=== PATIENT | female | born 1965 | race Caucasian/White ===

== ENCOUNTER 2017-06-16 17:17 | Emergency (ER) | payer MEDICAID, OTHER ==
[2017-06-16 17:27] VITALS: RESP 18; TEMP 98.3; O2SAT 98
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
[2017-06-16 19:00] VITALS: BP 124/72; PULSE 72
--- NOTE | 2017-06-16 19:01 | RAD ---
PROCEDURE: Radiographs of the Lumbar Spine. HISTORY: pain COMPARISON: None available. FINDINGS: BONES: Alignment appears satisfactory. No listhesis. No acute displaced fracture identified. DISC SPACES: Unremarkable. OTHER FINDINGS: None. IMPRESSION: No acute displaced fracture or subluxation identified.
== END 2017-06-16 19:00 | disposition home or self-care (01) ==
LOC: C.ER 17:17
DX: S39.012A Strain of muscle, fascia and tendon of lower back, initial encounter (principal); S80.02XA Contusion of left knee, initial encounter; S80.01XA Contusion of right knee, initial encounter; V89.2XXA Person injured in unspecified motor-vehicle accident, traffic, initial encounter

== ENCOUNTER 2018-01-13 12:20 | Emergency (ER) | payer MEDICAID ==
[2018-01-13 12:25] VITALS: TEMP 97.6
[2018-01-13 13:03] LABS: HCG,QUALITATIVE URINE NEGATIVE (NEGATIVE)
[2018-01-13 13:05] LABS: SQUAMOUS EPITHIAL 2 /hpf (0-5); URINE BILIRUBIN NEGATIVE (NEGATIVE); URINE BLOOD NEGATIVE (NEGATIVE); URINE CLARITY Clear (Clear); URINE COLOR Yellow (YELLOW); URINE GLUCOSE (UA) NORMAL (Normal); URINE LEUKOCYTE ESTERASE NEG Leu/uL (Negative); URINE PROTEIN NEGATIVE (NEGATIVE); URINE UROBILINOGEN NORMAL mg/dL (0.2-1.0)
--- NOTE | 2018-01-13 13:44 | C.PDOC ---
History Of Present Illness 52 y/o female presents to the ED complaining of vaginal bleeding and abdominal pain, ongoing for 2-3 months. Patient has not seen a pets and pet supplies salesperson in the past year. States the bleeding is on and off, usually with 2 weeks of icer hand bleeding and 2 weeks of heavy bleeding. Today the abdominal pain worsened, prompting patient to come to the ED. Also complains of chills, nausea, and back pain. Denies any vomiting, diarrhea, incontinence, dysuria, or hematuria. Taking Motrin and Tylenol at home for the pain. Patient saw primary doctor for the pain and had an ultrasound of the abdomen scheduled, supposed to be done today, but the office is closed due to snow. PMD: Albert Time Seen by Provider: 01/13/18 12:42 Chief Complaint (Nursing): Female Genitourinary History Per: Patient History/Exam Limitations: no limitations Onset/Duration Of Symptoms: Waxing/Waning (for 2-3 months) Current Symptoms Are (Timing): Worse Quality Of Discomfort: "Pain" Past Medical History Reviewed: Historical Data, Nursing Documentation, Vital Signs Vital Signs: Last Vital Signs Temp 97.6 F 01/13/18 12:23 Pulse 97 H 01/13/18 16:34 Resp 16 01/13/18 16:34 BP 134/71 01/13/18 16:34 Pulse Ox 98 01/13/18 16:41 - Medical History PMH: No Chronic Diseases Other Surgeries: Abdominoplasty Family History: States: Unknown Family Hx - Social History Hx Tobacco Use: No Hx Alcohol Use: No Hx Substance Use: No - Immunization History Hx Tetanus Toxoid Vaccination: No Hx Influenza Vaccination: No Hx Pneumococcal Vaccination: No Review Of Systems Constitutional: Positive for: Chills. Negative for: Fever Gastrointestinal: Positive for: Nausea, Abdominal Pain. Negative for: Vomiting , Diarrhea Genitourinary: Positive for: Vaginal Bleeding. Negative for: Dysuria, Incontinence, Hematuria Musculoskeletal: Positive for: Back Pain Physical Exam - Physical Exam Appears: No Acute Distress Skin: No Rash Head: Atraumatic, Normacephalic Eye(s): bilateral: PERRL, EOMI Oral Mucosa: Moist Neck: Supple Chest: No Tenderness Cardiovascular: Rhythm Regular, No Murmur Respiratory: No Rales, No Rhonchi, No Wheezing, Other (Clear to auscultation bilaterally) Gastrointestinal/Abdominal: Soft, Tenderness (mild suprapubic and lower abdominal tenderness), No Guarding, No Rebound Back: No CVA Tenderness Extremity: No Calf Tenderness, No Swelling Neurological/Psych: Oriented x3, Normal Speech, No Other (gross deficits) ED Course And Treatment - Laboratory Results Result Diagrams: 01/13/18 14:04 01/13/18 14:04 O2 Sat by Pulse Oximetry: 98 (RA) Pulse Ox Interpretation: Normal - CT Scan/US Transvag/Pelvic US Other Rad Studies (CT/US): Read By Radiologist, Radiology Report Reviewed CT/US Interpretation: FINDINGS: UTERUS: Measures 11.0 x 4.8 x 5.6 cm. Anteverted, normal in size and appearance. There is a 1.5 x 0.8 x 1.1 cm intramural fibroid in the anterior wall of the midbody of the uterus to the left and 1.8 x 1.5 x 1.9 cm intramural fibroid in the fundus anteriorly and to the right. ENDOMETRIUM: Measures 6.4 mm in diameter. Unremarkable. CERVIX: No cervical abnormality identified. RIGHT OVARY: Measures 3.6 x 2.7 x 2.8 cm. No solid mass. Normal flow. There is a 2.9 x 2.9 x 2.8 cm simple cyst. LEFT OVARY: Measures 3.0 x 1.6 x 2.6 cm. No solid mass. Normal flow. FREE FLUID: No significant free fluid noted. OTHER FINDINGS: None. IMPRESSION: 1. Fibroid uterus, the larger intramural anterior fundal fibroid to the right measures 1.9 cm. 2. 2.9 cm simple cyst in the right ovary. Medical Decision Making Medical Decision Making: Time: 12:45 Initial Plan: * CMP * CBC * Urinalysis * HCG, qualitative * Urine culture * US Pelvis/Transvag Labs reviewed, and grossly normal. US findings d/w patient in detail. All questions answered. Patient is stable for discharge home. Advised to take Motrin or Tylenol for pain as needed. Patient instructed to follow up with pets and pet supplies salesperson without fail, and provided with copy of US results. Referral to the women's clinic was also provided. Disposition Counseled Patient/Family Regarding: Studies Performed, Diagnosis, Need For Followup - Disposition Referrals: Shaik Price MD [Staff Provider] - [facility] [Outside] Disposition: HOME/ ROUTINE Disposition Time: 16:32 Condition: GOOD Additional Instructions: Take Tylenol or Motrin for pain. Follow up with Dr Ruiz and pets and pet supplies salesperson of your choice or in women's clinic at [place]- call for appointments. Instructions: Ovarian Cyst (DC) Forms: [facility] ([place]ri[place]), General Discharge Instructions - POA Present On Arrival: None - Clinical Impression Clinical Impression: Fibroid uterus, Right ovarian cyst - PA / [place] / Resident Statement MD/DO has reviewed & agrees with the documentation as recorded. - Scribe Statement The provider has reviewed the documentation as recorded by the Scribe (Melina Hale) All medical record entries made by the Scribe were at my direction and personally dictated by me. I have reviewed the chart and agree that the record accurately reflects my personal performance of the history, physical exam, medical decision making, and the department course for this patient. I have also personally directed, reviewed, and agree with the discharge instructions and disposition.
[2018-01-13 14:07] LABS: BASO # 0.1 K/uL (0.0-0.2); BASO % 0.7 % (0.0-2.0); EOS % 0.3 % (0.0-4.0); LYMPH # 1.6 K/uL (1.0-4.3); LYMPH % 21.7 % (20.0-40.0); MEAN CELL VOLUME 86.6 fL (81.0-99.0); MEAN CORPUSCULAR HEMOGLOBIN 29.8 pg (27.0-31.0); MEAN CORPUSCULAR HGB CONC 34.5 g/dL (33.0-37.0); MEAN PLATELET VOLUME 8.7 fL (7.2-11.7); MONO # 0.5 K/uL (0.0-0.8); MONO % 6.4 % (0.0-10.0); NEUT # 5.3 K/uL (1.8-7.0); NEUT % 70.9 % (50.0-75.0); RBC 4.01 Mil/uL (3.80-5.20); RED CELL DISTRIBUTION WIDTH 14.6 % (11.5-14.5); WHITE BLOOD COUNT 7.5 K/uL (4.8-10.8)
[2018-01-13 14:31] LABS: ALB/GLOB RATIO 1.2 (1.0-2.1); ALBUMIN 3.7 g/dL (3.5-5.0); ALT/SGPT 17 U/L (9-52); AST/SGOT 14 U/L (14-36); BLOOD UREA NITROGEN 11 mg/dL (7-17); CALCIUM 8.7 mg/dl (8.6-10.4); GFR AFRICAN-AMERICAN > 60; GFR NON-AFRICAN AMERICAN > 60
--- NOTE | 2018-01-13 15:41 | US ---
HISTORY: Pelvic pain COMPARISON: None available. TECHNIQUE: Transabdominal and transvaginal pelvic ultrasound was performed. FINDINGS: UTERUS: Measures 11.0 x 4.8 x 5.6 cm. Anteverted, normal in size and appearance. There is a 1.5 x 0.8 x 1.1 cm intramural fibroid in the anterior wall of the midbody of the uterus to the left and 1.8 x 1.5 x 1.9 cm intramural fibroid in the fundus anteriorly and to the right. ENDOMETRIUM: Measures 6.4 mm in diameter. Unremarkable. CERVIX: No cervical abnormality identified. RIGHT OVARY: Measures 3.6 x 2.7 x 2.8 cm. No solid mass. Normal flow. There is a 2.9 x 2.9 x 2.8 cm simple cyst. LEFT OVARY: Measures 3.0 x 1.6 x 2.6 cm. No solid mass. Normal flow. FREE FLUID: No significant free fluid noted. OTHER FINDINGS: None. IMPRESSION: 1. Fibroid uterus, the larger intramural anterior fundal fibroid to the right measures 1.9 cm. 2. 2.9 cm simple cyst in the right ovary.
[2018-01-13 16:34] VITALS: BP 134/71; PULSE 97; RESP 16
[2018-01-13 16:35] VITALS: O2SAT 98
== END 2018-01-13 16:40 | disposition home or self-care (01) ==
LOC: C.ER 12:20
DX: D25.9 Leiomyoma of uterus, unspecified (principal); N83.201 Unspecified ovarian cyst, right side

== ENCOUNTER 2018-01-23 00:57 | Emergency (ER) | payer MEDICAID ==
[2018-01-23 01:46] LABS: BASO # 0.1 K/uL (0.0-0.2); BASO % 1.2 % (0.0-2.0); EOS % 0.5 % (0.0-4.0); HEMOGLOBIN 12.7 g/dL (11.0-16.0); LYMPH # 1.9 K/uL (1.0-4.3); LYMPH % 20.5 % (20.0-40.0); MEAN CELL VOLUME 87.3 fL (81.0-99.0); MEAN CORPUSCULAR HEMOGLOBIN 30.2 pg (27.0-31.0); MEAN CORPUSCULAR HGB CONC 34.5 g/dL (33.0-37.0); MEAN PLATELET VOLUME 8.5 fL (7.2-11.7); MONO # 0.6 K/uL (0.0-0.8); MONO % 6.5 % (0.0-10.0); NEUT # 6.6 K/uL (1.8-7.0); NEUT % 71.3 % (50.0-75.0); RBC 4.2 Mil/uL (3.80-5.20); RED CELL DISTRIBUTION WIDTH 13.6 % (11.5-14.5); WHITE BLOOD COUNT 9.2 K/uL (4.8-10.8)
[2018-01-23 02:01] LABS: SQUAMOUS EPITHIAL 5 /hpf (0-5); URINE BILIRUBIN NEGATIVE (NEGATIVE); URINE BLOOD NEGATIVE (NEGATIVE); URINE CLARITY Hazy (Clear); URINE COLOR Yellow (YELLOW); URINE GLUCOSE (UA) NORMAL (Normal); URINE LEUKOCYTE ESTERASE TRACE Leu/uL (Negative); URINE PROTEIN NEGATIVE (NEGATIVE); URINE UROBILINOGEN NORMAL mg/dL (0.2-1.0)
[2018-01-23] MEDS ORDERED: Sodium Chloride 0.9% 1,000 ML IV ONE (02:09)
[2018-01-23 02:18] LABS: ALB/GLOB RATIO 1.1 (1.0-2.1); ALBUMIN 3.8 g/dL (3.5-5.0); ALT/SGPT 8 U/L (9-52); AST/SGOT 16 U/L (14-36); BLOOD UREA NITROGEN 15 mg/dL (7-17); CALCIUM 8.6 mg/dl (8.6-10.4); GFR AFRICAN-AMERICAN > 60; GFR NON-AFRICAN AMERICAN > 60; LIPASE 214 U/L (23-300)
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
[2018-01-23 02:33] LABS: BARBITURATES, UR NEGATIVE (NEGATIVE); BENZODIAZEPINES, UR NEGATIVE (NEGATIVE); OPIATES, UR NEGATIVE (NEGATIVE); PHENCYCLIDINE, UR NEGATIVE (NEGATIVE)
[2018-01-23] MEDS ORDERED: Sodium Chloride 0.9% 1,000 ML ONE (03:02)
[2018-01-23] MEDS ORDERED: Iodixanol 320 MG/ML 100 ML BOTTLE IV ONE (04:54)
[2018-01-23 09:11] VITALS: BP 154/88; PULSE 60; RESP 18; TEMP 97.5; O2SAT 100
--- NOTE | 2018-01-23 12:14 | CT ---
PROCEDURE: CT scan of the abdomen and pelvis dated 01/23/2018 HISTORY: Abdominal pain COMPARISON: Comparison made with pelvic ultrasound dated 01/13/2018. TECHNIQUE: Contiguous axial images of the abdomen and pelvis performed following oral and intravenous injection of approximately 100 cc Visipaque 320 contrast material. Data additional 2 dimensional sagittal and coronal reformats generated. Radiation dose: Total exam DLP = This CT exam was performed using one or more of the following dose reduction techniques: Automated exposure control, adjustment of the mA and/or kV according to patient size, and/or use of iterative reconstruction technique. FINDINGS: LOWER THORAX: Minor linear atelectasis and or scarring changes seen in the left lingular region. No evidence of effusion or basilar pneumothorax. Heart appears enlarged. No significant pericardial effusion LIVER: Liver is mildly enlarged measuring nearly 20 cm in CC dimension. Mild diffuse fatty hepatic infiltration. No obvious hepatic mass or collection seen on this exam GALLBLADDER AND BILE DUCTS: No evidence of intraluminal gallbladder calculi Gallbladder appears incompletely distended likely due to nonfasting state which presumably accounts thick-walled appearance however the possibility of acalculous cholecystitis not excluded. PANCREAS: The visualized portions of the pancreas appear unremarkable without masses collections or calcifications. Pancreatic duct does not appear significantly dilated. SPLEEN: Spleen exhibits normal size and attenuation pattern without mass collection or calcification. ADRENALS: No adrenal lesions. KIDNEYS AND URETERS: Kidneys demonstrate symmetric nephrograms. No evidence of nephrolithiasis or hydronephrosis. BLADDER: Urinary bladder is incompletely distended which presumably accounts for thick-walled appearance. Rule out cystitis. REPRODUCTIVE: Uterus appears mildly prominent with enhancing focus along left body possibly representing a enhancing fibroid. Clinical correlation recommended. Re- demonstrated is a cystic lesion in the right adnexal region that measures approximately 3.5 x 3.2 x 2.5 cm. This most likely represents an ovarian cyst. Please refer to prior pelvic ultrasound and corresponding report 01/13/2018 APPENDIX: Normal-appearing appendix best seen on coronal sequence image number [id number]. BOWEL: Evaluation of the bowel is somewhat limited due to the lack of oral contrast material. Stomach is nondistended which presumably accounts for thick-walled appearance. Possibility of a gastritis or other intrinsic/ invasive wall lesion not excluded. Visualized loops of small bowel exhibit normal contour and caliber. No evidence acute mechanical small bowel obstruction. Stool and air seen throughout the cecum ascending and transverse colon. Air and lesser amount of stool seen throughout the remaining colon. No definitive mural wall thickening. PERITONEUM: Unremarkable. No fluid collection. No free air. LYMPH NODES: Unremarkable. No enlarged lymph nodes. VASCULATURE: Unremarkable. No aortic aneurysm. BONES: Minor multilevel degenerative spondylosis of the of all thoracic and lumbar spine. OTHER FINDINGS: None. IMPRESSION: Hepatomegaly with mild fatty hepatic infiltration. Gallbladder is incompletely distended/contracted likely due to nonfasting state however rule out acalculous cholecystitis. Right adnexal cyst. Possibly uterine fibroids. Please refer to prior pelvic ultrasound and corresponding report 01/13/2018.
--- NOTE | 2018-01-23 14:30 | RAD ---
HISTORY: abd pain COMPARISON: Comparison chest dated 09/12/2015 TECHNIQUE: Chest PA and lateral FINDINGS: LUNGS: No active pulmonary disease. PLEURA: No significant pleural effusion identified. No pneumothorax apparent. CARDIOVASCULAR: Normal. OSSEOUS STRUCTURES: No significant abnormalities. VISUALIZED UPPER ABDOMEN: Normal. OTHER FINDINGS: None. IMPRESSION: No active disease.
--- NOTE | 2018-01-25 21:21 | CARD ---
APPROVED REPORT EKG Measurement Heart [id number] <Conclusion> Normal sinus rhythm Normal ECG
== END 2018-01-23 09:23 | disposition home or self-care (01) ==
LOC: C.ER 00:57
DX: N83.201 Unspecified ovarian cyst, right side (principal); R10.9 Unspecified abdominal pain
CPT/HCPCS: 71046; 74177; 80053; 80324; 80345; 80346; 80349; 80353; 80358; 80361; 81001; 83690; 83992; 84484; 85025; 93005; 96374; 96375; 99285; J1885; J2405; J7040; Q9967

== ENCOUNTER 2018-02-21 22:41 | Emergency (ER) | payer MEDICAID ==
[2018-02-21 22:52] VITALS: O2SAT 98
[2018-02-21 23:49] LABS: BASO # 0.1 K/uL (0.0-0.2); BASO % 1.1 % (0.0-2.0); EOS # 0.1 K/uL (0.0-0.7); EOS % 1.1 % (0.0-4.0); HEMOGLOBIN 12.9 g/dL (11.0-16.0); LYMPH # 1.7 K/uL (1.0-4.3); LYMPH % 26.5 % (20.0-40.0); MEAN CORPUSCULAR HEMOGLOBIN 31.2 pg (27.0-31.0); MEAN CORPUSCULAR HGB CONC 34.8 g/dL (33.0-37.0); MEAN PLATELET VOLUME 8.2 fL (7.2-11.7); MONO # 0.4 K/uL (0.0-0.8); MONO % 6.8 % (0.0-10.0); NEUT # 4.2 K/uL (1.8-7.0); NEUT % 64.5 % (50.0-75.0); NRBC % 0.1 % (0.0-2.0); RBC 4.13 Mil/uL (3.80-5.20); RED CELL DISTRIBUTION WIDTH 14.8 % (11.5-14.5); WHITE BLOOD COUNT 6.4 K/uL (4.8-10.8)
[2018-02-21 23:51] LABS: MEAN CELL VOLUME 89.5 fL (81.0-99.0)
[2018-02-21 23:55] LABS: SQUAMOUS EPITHIAL 13 /hpf (0-5); URINE BACTERIA RARE (<OCC); URINE BILIRUBIN NEGATIVE (NEGATIVE); URINE BLOOD 1+ (NEGATIVE); URINE CLARITY Hazy (Clear); URINE COLOR Yellow (YELLOW); URINE GLUCOSE (UA) NORMAL (Normal); URINE LEUKOCYTE ESTERASE NEG Leu/uL (Negative); URINE PROTEIN NEGATIVE (NEGATIVE); URINE UROBILINOGEN NORMAL mg/dL (0.2-1.0)
[2018-02-22 00:05] LABS: BARBITURATES, UR NEGATIVE (NEGATIVE); BENZODIAZEPINES, UR NEGATIVE (NEGATIVE); OPIATES, UR NEGATIVE (NEGATIVE); PHENCYCLIDINE, UR NEGATIVE (NEGATIVE)
[2018-02-22 00:37] LABS: ALB/GLOB RATIO 1.2 (1.0-2.1); ALBUMIN 3.7 g/dL (3.5-5.0); ALT/SGPT 23 U/L (9-52); AST/SGOT 21 U/L (14-36); BLOOD UREA NITROGEN 15 mg/dL (7-17); CALCIUM 9.1 mg/dl (8.6-10.4); GFR AFRICAN-AMERICAN > 60; GFR NON-AFRICAN AMERICAN > 60
--- NOTE | 2018-02-22 00:38 | C.PDOC ---
History Of Present Illness 52 year old female presents to the ED with complaint of an enlarged puffy face, supraclavicular fat pads, and buffalo hump which occurred suddenly earlier today. Patient denies history of steroid use. She reports history of hypothyroidism and has been taking synthroid for the past 3 months. when asked whether she has gained or lost weight during the past three months, patient states she cannot answer and replies yes to both. Patient also reports that she has been experiencing hot flashes, feels short of breath and is having trouble speaking. Patient denies polyuria, polydipsia, hematuria, history of alcoholism or psychiatric illness. Time Seen by Provider: 02/21/18 23:14 Chief Complaint (Nursing): Medical Clearance History Per: Patient History/Exam Limitations: no limitations Onset/Duration Of Symptoms: Hrs, Sudden Onset Current Symptoms Are (Timing): Still Present Additional History Per: Patient Past Medical History Reviewed: Historical Data, Nursing Documentation, Vital Signs Vital Signs: Last Vital Signs Temp 99.1 F 02/22/18 01:12 Pulse 85 02/22/18 01:12 Resp 16 02/22/18 01:12 BP 142/85 02/22/18 01:12 Pulse Ox 98 02/22/18 01:12 - Medical History PMH: Hypothyroidism Surgical History: No Surg Hx Family History: States: Unknown Family Hx - Social History Hx Tobacco Use: No Hx Alcohol Use: Yes Hx Substance Use: No - Immunization History Hx Tetanus Toxoid Vaccination: No Hx Influenza Vaccination: No Hx Pneumococcal Vaccination: No Review Of Systems Constitutional: Positive for: Other (enlarged puffy face, supraclavicular fat pads and buffalo hump. hot flashes ) Genitourinary: Negative for: Dysuria, Hematuria, Other (polyuria, polydipsia ) Physical Exam - Physical Exam Appears: Non-toxic, No Acute Distress Skin: Normal Color, Warm, Dry Head: Atraumatic, Normacephalic, Other (plethoric facial appearance) Eye(s): bilateral: Normal Inspection Oral Mucosa: Moist Neck: No Midline Cervical Tenderness, No Paracervical Tenderness, Supple, Other (supraclavicular fat pads, left>right ) Lymphatic: No Other (clavicular lymphadenopathy ) Chest: Symmetrical, No Deformity, No Tenderness Cardiovascular: Rhythm Regular, No Murmur Respiratory: Normal Breath Sounds, No Rales, No Rhonchi, No Wheezing Gastrointestinal/Abdominal: Soft, No Tenderness, No Guarding, No Rebound, Other (obese, s/p abdominoplasty. no striae) Back: Other (small bufallo hump noted ) Extremity: Normal ROM, Capillary Refill (less than 2 seconds ) Neurological/Psych: Oriented x3, No Normal Speech (pressured speech ), Normal Cognition Additional Physical Exam Comments: Patient is speaking incessantly during examination with pressured speech. ED Course And Treatment - Laboratory Results Result Diagrams: 02/21/18 23:45 02/21/18 23:45 Lab Interpretation: Abnormal (TSH 2.54 wnl, PM Plasma Cortisol: < 0.16 (low), alcohol/tox/UA neg.) ECG: Interpreted By Me ECG Rhythm: Sinus Rhythm ECG Interpretation: Normal Rate From EC O2 Sat by Pulse Oximetry: 98 (on RA) Pulse Ox Interpretation: Normal - Radiology CXR: Interpreted by Me CXR Interpretation: Yes: No Acute Disease Progress Note: Bloodwork, urinalysis, CXR, and EKG ordered and reviewed. Reevaluation Time: 00:58 Reassessment Condition: Unchanged Medical Decision Making Medical Decision Making: though pt on synthroid, pt behaves as though hyperthyroid- pressured speech, hot flashes TSH wnl, so theraputic? pt w "sudden" cushingoid presentation of plethoric face, buffalo hump, and supraclavicular fat pads, suggesting elevated cortisol state, but pt's PM Cortisol is LOW <0.16 Consider Endocrine eval: Consider Cosyntropin stimulation test and/or 24 hour urine cortisol, 24 urine for metanephrines pt seemed insulted to be asked if h/o mental illness as pt has difficulty answering even very simple questions (ie, how many children do you have) and refused for this MD to come to bedside therafter, so d/c instructions relayed by Nursing and pt may follow-up with PMD Disposition Doctor Will See Patient In The: Office Counseled Patient/Family Regarding: Studies Performed, Diagnosis - Disposition Referrals: Shaik Price MD [Staff Provider] - Disposition: HOME/ ROUTINE Disposition Time: 01:03 Condition: GOOD Additional Instructions: workup from Cardiac and pulmary perspective normal TSH normal (see results) Though pt on synthroid, pt behaves as though hyperthyroid- pressured speech, hot flashes TSH wnl, so theraputic? pt w "sudden" cushingoid presentation of plethoric face, buffalo hump, and supraclavicular fat pads, suggesting elevated cortisol state, but pt's PM Cortisol is LOW <0.16 Consider Endocrine eval: Consider Cosyntropin stimulation test and/or 24 hour urine cortisol, 24 urine for metanephrines 52 years old and having hot flashes, consider menopausal changes. Instructions: Menopause, Elroy's Syndrome Forms: [employer] ([place]i) - Clinical Impression Clinical Impression: Hot flashes, Shortness of breath, Cushingoid facies - Scribe Statement The provider has reviewed the documentation as recorded by the Scribe (Aisha Koenig) Provider Attestation: All medical record entries made by the Scribe were at my direction and personally dictated by me. I have reviewed the chart and agree that the record accurately reflects my personal performance of the history, physical exam, medical decision making, and the department course for this patient. I have also personally directed, reviewed, and agree with the discharge instructions and disposition.
--- NOTE | 2018-02-22 00:55 | C.PDOC ---
Time Seen by Provider: 02/21/18 23:14 Chief Complaint (Nursing): Medical Clearance Past Medical History Vital Signs: Last Vital Signs Temp 97.6 F 02/21/18 22:48 Pulse 100 H 02/21/18 22:48 Resp 18 02/21/18 22:48 BP 148/86 02/21/18 22:48 Pulse Ox 98 02/21/18 22:48 - Medical History PMH: Hypothyroidism Family History: States: Unknown Family Hx - Social History Hx Tobacco Use: No Hx Alcohol Use: Yes Hx Substance Use: No - Immunization History Hx Tetanus Toxoid Vaccination: No Hx Influenza Vaccination: No Hx Pneumococcal Vaccination: No ED Course And Treatment - Laboratory Results Result Diagrams: 02/21/18 23:45 02/21/18 23:45 O2 Sat by Pulse Oximetry: 98 Disposition - Disposition
[2018-02-22 01:24] VITALS: BP 142/85; PULSE 85; RESP 16; TEMP 99.1
--- NOTE | 2018-02-22 08:41 | RAD ---
Chest x-ray two views History: Chest pain. Comparison: 01/23/2018 Findings: Mild linear atelectatic changes at the left lung base. Bibasilar breast nipple shadows. No gross focal infiltrate or effusion. Heart size within normal limits. Degenerative changes in the spine. Impression: Mild linear atelectatic changes at the left lung base. Bibasilar breast nipple shadows. No gross focal infiltrate or effusion. Heart size within normal limits. If symptoms persists, consider further evaluation with chest CT.
--- NOTE | 2018-02-23 15:31 | CARD ---
APPROVED REPORT EKG Measurement Heart [id number] <Conclusion> Normal sinus rhythm Normal ECG
== END 2018-02-22 01:24 | disposition home or self-care (01) ==
LOC: C.ER 22:41
DX: N95.1 Menopausal and female climacteric states (principal); R06.02 Shortness of breath; E24.2 Drug-induced Cushing's syndrome